=== PATIENT | female | born 1960 | race Caucasian/White ===

== ENCOUNTER 2017-09-01 09:35 | Outpatient (CLI) | payer OTHER ==
[~2017-09-01 09:35] MED LIST: ELOCON45 G1 TP; ZYRTEC10 M3 PO
== END 2017-09-01 09:51 | disposition home or self-care (01) ==
LOC: MAMO-SONO 09:35
DX: Z12.31 Encounter for screening mammogram for malignant neoplasm of breast (principal); N60.11 Diffuse cystic mastopathy of right breast

== ENCOUNTER 2018-05-12 16:42 | Emergency (ER) | payer OTHER ==
[~2018-05-12] VITALS: Ht 154.9 cm; Wt 63.0 kg
== END 2018-05-12 19:14 | disposition home or self-care (01) ==
LOC: ER 16:42
DX: S20.212A Contusion of left front wall of thorax, initial encounter (principal); W18.39XA Other fall on same level, initial encounter; Y93.89 Activity, other specified; Y92.89 Other specified places as the place of occurrence of the external cause; Y99.8 Other external cause status

== ENCOUNTER 2019-02-01 09:49 | Emergency (ER) | payer OTHER ==
[~2019-02-01] VITALS: Ht 157.5 cm; Wt 64.0 kg
[2019-02-01] MEDS ORDERED: KETO10TA2 PO (14:12)
[2019-02-01] MEDS ORDERED: SKELAXIN800 MG PO (14:12)
[2019-02-01] MEDS ORDERED: ACETAMINOPHEN500 M2 (14:31)
== END 2019-02-01 14:34 | disposition home or self-care (01) ==
LOC: ER 09:49 → EMR PED 10:04 → ER 14:34
DX: S73.192A Other sprain of left hip, initial encounter (principal); X50.0XXA Overexertion from strenuous movement or load, initial encounter; Y93.89 Activity, other specified; Y92.098 Other place in other non-institutional residence as the place of occurrence of the external cause; Y99.8 Other external cause status

== ENCOUNTER → 2020-12-07 | Outpatient (CLI) | payer OTHER ==
[~2020-12-07] MED LIST changes: +ACETAMINOPHEN500 M2; +KETO10TA2 PO; +SKELAXIN800 MG PO
== END | disposition home or self-care (01) ==
LOC: MAMO-SONO 14:33
PROVIDERS: ATTEND Obstetrics & Gynecology Obstetrics
DX: N64.4 Mastodynia (principal); Z12.31 Encounter for screening mammogram for malignant neoplasm of breast

== ENCOUNTER 2021-12-27 13:31 | Outpatient (CLI) | payer OTHER | END 2021-12-27 13:48 | disposition home or self-care (01) | LOC: MAMO-SONO 13:31 | PROVIDERS: ATTEND Obstetrics & Gynecology Obstetrics | DX: N64.4 Mastodynia (principal) ==

== ENCOUNTER 2022-02-11 12:44 | Emergency (ER) | payer OTHER ==
[~2022-02-11] VITALS: Ht 154.9 cm; Wt 65.3 kg
[2022-02-11] MEDS ORDERED: DUI500 PO (15:40)
[2022-02-11] MEDS ORDERED: MUPIROCIN1 G1 TOP (15:40)
== END 2022-02-11 16:03 | disposition home or self-care (01) ==
LOC: ER 12:44
DX: L03.012 Cellulitis of left finger (principal)

== ENCOUNTER 2022-02-21 11:20 | Day surgery (SDC) | payer OTHER ==
[~2022-02-21] VITALS: Ht 180.3 cm; Wt 64.4 kg
[~2022-02-21 11:20] MED LIST changes: +DUI500 PO; +MUPIROCIN1 G1 TOP; +SORBUTUSS LIQU474 ML PO
== END 2022-02-21 17:35 | disposition home or self-care (01) ==
LOC: CIR.AMB 11:20
PROVIDERS: ATTEND Orthopaedic Surgery
DX: M24.522 Contracture, left elbow (principal); S42.402A Unspecified fracture of lower end of left humerus, initial encounter for closed fracture; S46.322A Laceration of muscle, fascia and tendon of triceps, left arm, initial encounter

== ENCOUNTER 2023-01-13 14:23 | Outpatient (CLI) | payer OTHER | END 2023-01-13 14:56 | disposition home or self-care (01) | LOC: RAD 14:23 | PROVIDERS: ATTEND Obstetrics & Gynecology Obstetrics | DX: N64.4 Mastodynia (principal) ==

== ENCOUNTER 2023-01-24 14:24 | Outpatient (CLI) | payer OTHER | END 2023-01-24 14:34 | disposition home or self-care (01) | LOC: RAD 14:24 | PROVIDERS: ATTEND Chiropractor Sports Physician | DX: M25.561 Pain in right knee (principal) ==